=== PATIENT | female | born 1995 | race Caucasian/White ===

== ENCOUNTER → 2017-09-06 13:14 | Outpatient (CLI) | payer SELFPAY ==
--- NOTE | 2017-09-06 13:21 | MRI_ITS ---
STUDY: BILATERAL BREAST MR WITHOUT AND WITH CONTRAST REASON FOR EXAM: Female, 22 years old. Right breast cancer. History of lump for 8 months. Recent biopsy. TECHNIQUE: Multi-sequence multi-echo imaging of both breasts was performed with a dedicated breast coil. T1-weighted and T2-weighted images were performed before the administration of contrast. T1-weighted images were also performed after the administration of 4 mL of Gadavist contrast intravenously without complications. COMPARISON: Prior breast ultrasound dated August 09, 2017 and biopsy images dated August 18, 2017. FINDINGS: RIGHT BREAST: In the upper inner aspect of the right breast there is a lobulated mass measuring approximately 1.7 cm x 2.4 cm x 2.4 cm. This mass corresponds to the ultrasound findings of August 09, 2017. There is low signal intensity within the central portion of the largest mass likely representing necrosis. There are 2 satellite lesions, one medial and adjacent to the largest mass measuring 1 cm x 1.1 cm. There is another mass lateral to and above the largest mass measuring 1.3 cm x 7 mm. In addition to the satellite masses there are 2 separate masses located in the upper outer quadrant approximately 2 cm lateral to the largest mass, one of which went measures 5 mm in widest diameter and the other measuring 6 mm in widest diameter. These masses are suspicious for separate foci of tumor. LEFT BREAST: The breast tissue is scattered fibroglandular densities with minimal background enhancement. There are no abnormal enhancing masses or areas of non-mass enhancement in the left breast. There are no enlarged or abnormal lymph nodes. There is no abnormality in the visualized regions of the chest or liver. MRI/Breast w/o and/or W Cont Bilat IMPRESSION: Multiple masses in the right breast most likely representing multicentric disease, the largest of which is located in the upper inner quadrant and measures 1.7 cm x 2.4 cm x 2.4 cm with a low signal intensity central focus likely representing necrosis. The left breast is unremarkable. CATEGORY: BIRADS Category 6: Known Biopsy-Proven Malignancy - Appropriate Action Should Be Taken. A letter regarding these results will be sent to the patient by the facility within 30 days. Electronically Signed: Isauro Urbano MD at 12:15 EDT , Service support ,
== END ==
PROVIDERS: Family Provider Family Medicine; PCP Family Medicine
DX: C50.919 Malignant neoplasm of unspecified site of unspecified female breast (principal)
CPT/HCPCS: 77059; A9585; A4216; C8908

== ENCOUNTER 2017-09-20 09:17 | Day surgery (SDC) | payer SELFPAY, OTHER ==
[2017-09-20] VITALS (8 sets, daily range): BP systolic 92–123; BP diastolic 59–83; PULSE 50–82; RESP 15–16; TEMP 36.4–37.2; O2SAT 100; BMI 15.4
--- NOTE | 2017-09-20 | BREAST_PTH ---
PATIENT: MERLE BERRIOS LOC: [facility] [place] U#:[id number] AGE/SX: 22/F ROOM: RE09/20/[address]: Dr. Bridget Gibbons MD : 1995 BED: DIS: 09/21/2017 SPEC #: [id number] RECD: 09/20/17 14:09 STATUS: JULITA ANA MARIA #: [id number] J CARLOS: 09/20/17 00:[address]: Bridget Gibbons DEPT: SURGICAL PATHOLOGY RECD BY: Danielle Loyola ENTERED: 09/20/17 15:20 SP TYPE: BREAST OTHR DR: Eloisa Kidd DO Tissues: A - Right breast, NOS B - Lymph node, NOS C - Lymph node, NOS Procedures: Frozen Section (charge) Frozen Section Add'l ([facility]) Surgery Specimen Level V Surgery Specimen Level Frozen (no charge) HEADER OPERATION: Mastectomy, modified radical, axillary lymphadenopathy, Neoprobe PRE-OP DIAGNOSIS: Malignant neoplasm upper inner quadrant, right breast; need for IV access TISSUE SUBMITTED: A ? Right breast sent at 1405 to check margins, long suture zhang tail of Goff, short suture zhang lymph node, B ? Lymph node tissue, right breast ? sent at 1415 for FS, C ? Lymph node right breast sent at 1438 for FS ISCHEMIC TIME: 28 minutes FIXATION TIME: 29 hours FROZEN SECTION DIAGNOSIS A. Right breast: One lymph node (with suture), negative for metastatic carcinoma. B. Lymph node tissue, right: One lymph node, negative for metastatic carcinoma. C. Lymph node tissue, right: Two out of two lymph nodes, negative for metastatic carcinoma. SJ:michela 09/20/17 MICROSCOPIC DIAGNOSIS A. Right breast with sentinel lymph node, mastectomy and sentinel lymph node biopsy: Invasive ductal carcinoma. Ductal carcinoma in situ. One lymph node positive for isolated tumor cells. See cancer summary below. B. [place] lymph node tissue, right: One lymph node positive for isolated tumor cells. C. [place] lymph node tissue, right: Two out of two lymph nodes, negative for metastatic carcinoma. INVASIVE BREAST CANCER SUMMARY: Specimen ? total breast (including nipple and skin). Procedure ? total mastectomy (including nipple and skin). Lymph node sampling ? sentinel lymph nodes Specimen integrity ? single intact specimen Specimen laterality - right Tumor site ? upper inner quadrant Tumor size: Size of largest invasive carcinoma 4 x 2 x 1.5 cm Tumor focality ? two foci of invasive carcinoma Size of individual foci ? 4 x 2 x 1.5 cm and 1 x 1 x 0.7 cm Macroscopic and Microscopic extent of tumor: Skin ? invasive carcinoma does not invade into the dermis or epidermis. Nipple ? ductal carcinoma in situ does not involve the nipple epidermis. Skeletal muscle ? no skeletal muscle present. Ductal carcinoma in situ (DCIS) - ductal carcinoma in situ is present. Extensive intraductal component (EIC) ? see comment Estimated size (extent) of DCIS ? see comment Number of blocks with DCIS - 6 Number of blocks examined - 12 Architectural patterns ? comedo, cribriform and solid Nuclear grade ? grade 3 (high) Necrosis ? present, central (expansive ?comedo? necrosis) Lobular carcinoma in situ (LCIS) ? not identified Histologic type of invasive carcinoma ? invasive ductal carcinoma Histologic Grade ([place] grade): Glandular/tubular differentiation - score 3 Nuclear pleomorphism - score 3 Mitotic count ? score 3 Overall grade - 3 (score of 9) Margins: Margins uninvolved by invasive carcinoma. Ductal carcinoma in situ and invasive ductal carcinoma are <0.1 cm away from the posterior margin. Invasive ductal carcinoma (larger tumor) <0.1 cm away from the closest anterior margin. Lymph-Vascular invasion ? not identified. Dermal lymph-vascular invasion ? not identified Lymph nodes: Number of sentinel lymph nodes examined ? 4 Total number of lymph nodes examined (sentinel and nonsentinel) - 4 Number of lymph nodes with macrometastases and micrometastases - 0 Number of lymph nodes with isolated tumor cells - 2 Extranodal extension ? not seen Method of evaluation of sentinel lymph nodes - H & E, multiple levels and IHC. Distance metastasis ? not applicable Additional pathologic findings ? uninvolved breast tissue with extensive dense fibrosis. - Intraductal hyperplasia with focal atypia. Ancillary studies ? ([id number]) ER - positive (5%, weak) RI - positive (4%, weak) Her2 umair ? negative (0) Her2 by dual FERNY ? not performed. Microcalcifications ? present in ductal carcinoma in situ Clinical history - Please make reference to previous specimen from [facility] ([id number]) right breast, biopsy, 1 o?clock with diagnosis of invasive moderately differentiated ductal carcinoma. PATHOLOGIC STAGE: pT2(m) pN0(i+)sn Mx The above summary is in compliance with [employer] [place] [employer] (CAP) Cancer Protocols Checklist and [place] Joint Committee on Cancer (AJCC), Staging Manual, 8th Ed. SJ:michela 09/23/17 COMMENT A-C. Immunohistochemistry ([id number]) supports the above diagnosis. Two lymph node are positive for isolated tumor cells by immunohistochemical stains for cytokeratins ([id number]) and two lymph node are negative for metastatic carcinoma on multiple H & E levels and immunohistochemical stains for cytokeratins ([id number]). A. Immunohistochemistry ([id number]) is negative for lymph-vascular invasion. Ductal carcinoma in situ comprises about 60% of the smaller tumor volume and 10% of the larger tumor volume. The ductal carcinoma in situ is also noted away from the tumor masses. Extensive intraductal component is noted in relation to smaller tumor. Larger tumor also shows focal area of necrosis. Case has been reviewed in consultation with Dr. Scanlon who concurs with the above diagnosis. IDC:AM MICROSCOPIC DESCRIPTION Slides are reviewed. GROSS DESCRIPTION A - Received fresh for frozen section diagnosis and intraoperative consultation labeled with the patient's name is a specimen designated right breast. The specimen consists of a mastectomy specimen weighing 127 gm and measuring 12 x 10.5 x 3 cm. A piece of skin is noted measuring 6.5 x 1.8 cm. The nipple measures 0.8 cm in greatest dimension. A lymph node is identified by a suture measuring 0.5 cm in greatest dimension. The specimen is oriented by a long suture ? tail of Goff, short suture ? lymph node. The specimen is inked as follows: anterior ? yellow, posterior ? black, superior ? blue, inferior ? green, medial ? red and lateral ? orange. Two tumor masses are identified measuring 4 x 2 x 1.5 cm and 1 x 1 x 0.7 cm. The largest tumor mass is very close to anterior margin. Both tumor masses are 0.1 cm away from the posterior margin. This information is conveyed to the surgeon intraoperatively. Sections of the rest of the specimen reveal ng-yellow adipose cut surfaces mixed with ng-white fibrous area. The lymph node is submitted for frozen section diagnosis. More sections will be submitted after overnight fixation. / SJ: 09/20/17 Air Traffic Controller sections are submitted as follows: 1 ? frozen section, one lymph node, identified by suture, 2 ? nipple, entirely submitted, 3 ? perpendicular medial and lateral margin, 4 - perpendicular superior and inferior margin, 5 & 6 ? smaller tumor with closest anterior and posterior margin, entirely submitted, 710 ? larger tumor with closest anterior and posterior margin, 11-13 ? business representative sections from the other areas. / SJ: 09/21/17 B - Received fresh for frozen section diagnosis labeled with the patient's name is a specimen designated lymph node tissue, right breast. The specimen consists of three pieces of adipose tissue measuring in aggregate 2 x 1 x 0.5 cm. One lymph node is identified measuring 2 cm in greatest dimension. The entire specimen is submitted for frozen section diagnosis in one cassette. / : 09/20/17 C - Received fresh for frozen section diagnosis labeled with the patient's name is a specimen designated lymph node tissue, right breast. The specimen consists of a piece of adipose tissue containing two nodules consistent with lymph node measuring 0.5 and 2.5 cm in greatest dimension. The entire specimen is submitted in three cassettes as follows: 1 ? frozen section, one bisected lymph node, 2 ? frozen section, one lymph node, 3 ? rest of the specimen. / SJ: 09/20/17 TC:0 CPT: 33682, 42543 x2, 72444 x3, 75971, 22632
--- NOTE | 2017-09-20 | IMM_PTH ---
PATIENT: MERLE BERRIOS LOC: [facility] [place] U#:[id number] AGE/SX: 22/F ROOM: RE09/20/[address]: Dr. Bridget Gibbons MD : 1995 BED: DIS: 09/21/2017 SPEC #: [id number] RECD: 09/22/17 13:20 STATUS: JULITA RESamantha #: [id number] J CARLOS: 09/20/17 00:[address]: Bridget Gibbons DEPT: IMMUNOHISTOCHEMISTRY RECD BY: Danielle Loyola ENTERED: 09/22/17 13:22 SP TYPE: IMMUNO OTHR DR: Eloisa Kidd DO Tissues: A - Right breast, NOS B - Axillary lymph node, NOS C - Axillary lymph node, NOS Procedures: CALPONIN-1 (add) CD31 (add) CK7 (add) ER (add) HER2 JAYE (add) NJ (add) FACTOR VIII (add) Pankeratin (initial) Pankeratin (add) P40 (add) PHYSICIAN & [place] [phone] SPECIMEN INFORMATION: Tissue Source: A ? Right breast with sentinel lymph node, B ? Lymph node tissue, right breast, C ? Lymph node tissue, right breast Clinical Info: Malignant neoplasm upper inner quadrant right breast Specimen Number: [id number] A1, A7, A8, B1, C1, C2 CPT code: 42663 x3, 38640 x9, 99591 x3 METHODOLOGY: Deparaffinized sections of prefer/formalin-fixed tissue or PAP/DQ stained slides are incubated with monoclonal/polyclonal antibodies/oligonucleotide probes. Localization is made via biotin free immunoperoxidase method. Appropriate controls are performed and reacted as expected. Results on target cell population are indicated in the following table: RESULTS: ANTIBODY / CLONE RESULT Block A1 AE1-3 (AE1/AE3/PCK26) positive (isolated tumor cells) CK7 (OV-TL12/30) positive (isolated tumor cells) Block A7 MORPHOMETRIC ANALYSIS ER (clone 6F11) 5%, weak NJ (clone 16/1E2) 4%, weak Her-2Neu (clone CB11) 0 The prognostic test for HER2 is performed on formalin-fixed paraffin embedded tissue. A 3+ (positive) staining pattern is defined as intense, homogeneous, complete, circumferential membranous staining in >10% of contiguous tumor cells. A similar weak (2+) staining pattern is interpreted as equivocal. FERNY follow-up testing is recommended for all equivocal cases. Positivity/negativity for ER/NJ is reported if > or < 1% of the tumor cells are immuno- reactive, respectively. The ASCO/CAP criteria is used for scoring. Reference: Journal of Clinical Oncology, 2013; 31:3444-4209 & 2010; 16:8587-1678. Duration of fixation: 29 Hrs; Sample Adequate: Yes. These assays have not been validated on decalcified tissues. Results should be interpreted with caution given the likelihood of false negativity on decalcified specimens. Block A8 CD31 (ELISABETH/70A) negative Factor VIII (R Ag) negative P40 (BC28) positive Calponin-1 (PS281L) positive Block B1 AE1-3 (AE1/AE3/PCK26) positive (isolated tumor cells) CK7 (OV-TL12/30) positive (isolated tumor cells) Block C1 AE1-3 (AE1/AE3/PCK26) negative CK7 (OV-TL12/30) negative Block C2 AE1-3 (AE1/AE3/PCK26) negative CK7 (OV-TL12/30) negative These tests were developed and their performance characteristics determined by [facility]. They may not have been cleared or approved by the U.S. Food and Drug Administration. The FDA has determined that such clearance or approval is not necessary. INTERPRETATION: A. Right breast with sentinel lymph node, mastectomy and sentinel lymph node biopsy: One lymph node positive for isolated tumor cells. Invasive ductal carcinoma Ductal carcinoma in situ. Negative for lymph-vascular invasion. Positive for estrogen receptors (favorable prognostic indicator). Positive for progesterone receptors (favorable prognostic indicator). Negative for overexpression of JSE9avl. B. [place] lymph node tissue, right: One lymph node positive for isolated tumor cells. C. [place] lymph node tissue, right: Two out of two lymph nodes, negative for metastatic carcinoma. SJ:michela 09/23/17
[2017-09-20 09:40] LABS: Internal QC Validated? YES +Cl - CLEAR BKGD; Pregnancy, Urine Negative Negative
--- NOTE | 2017-09-20 10:00 | NM_ITS ---
PROCEDURE: NUCLEAR MEDICINE Injection [place] Node - RIGHT breast(s). REASON FOR EXAM: Female, 22 years old. Right breast cancer. TECHNIQUE: [place] node localization using radionuclide methods of the RIGHT breast(s) was performed following subcutaneous administration of 1.1 mCi of of sulfur colloid Tc-99m. FINDINGS: 1.1 mCi of technetium labeled sulfur colloid was given subcutaneously in the upper outer quadrant of the right breast in 4 equal aliquots. NM/Lymph Node Injection Only IMPRESSION: Subcutaneous injection of 1.1 mCi of Tc labeled sulfur colloid in 4 equal aliquots. Electronically Signed: Eliezer Laird MD at 10:35 EDT Tel [phone], Service support ,
[2017-09-20] MEDS: Bupivacaine 0.25% 30 ML Vial (12:39)
[2017-09-20] MEDS: Methylene Blue 1% 100 MG/10 ML VIAL (12:39)
[2017-09-20] MEDS: 0.9% Saline Lock 10 ML Syringe IV (12:39)
--- NOTE | 2017-09-20 12:43 | NURSING ---
PT UPDATED ABOUT SURGERY TIME.
[2017-09-20] MEDS: Cefazolin 2 GM in 0.9% Normal Saline 100 ML IV (12:47)
--- NOTE | 2017-09-20 15:59 | PCM.IMDPSTOP ---
Immediate Post-Op Note Date of Procedure: 09/20/17 Primary Surgeon/Physician: Bridget Gibbons client services administrator: Nadeem Gallagher Pre-Operative Diagnosis: right breast cancer Post-Operative Diagnosis: right breast cancer - lymph nodes - sentinel (4) negative Surgery/Procedure Performed:: right breast mastectomy, right axillary sentinel lymph node biopsy, placement of permanent indwelling tunnelled catheter in left subclavian vein with subcutaneous port Description of Surgical Findings:: right breast masses x 2 in the breast, right axillary lymph nodes (4) negative for metatatic disease Estimated Blood Loss: 40 ml Specimen's removed: right breast tissue, right axillary lymph duyen tissue Type of Anesthesia:: General ASA Class: ASA2 Mod Systematic Disease - Admit VTE Documentation VTE Present on Admission: Yes VTE Mechan Device Prophylaxis: SCD's
--- NOTE | 2017-09-20 16:02 | OP.PCM_ITS ---
Report of Operation Date of Procedure: 09/20/17 Pre-Operative Diagnosis: right breast cancer Post-Operative Diagnosis: right breast cancer - lymph nodes - sentinel (4) negative Surgery/Procedure Performed:: right breast mastectomy, right axillary sentinel lymph node biopsy, placement of permanent indwelling tunnelled catheter in left subclavian vein with subcutaneous port Description of Surgical Findings:: right breast masses x 2 in the breast, right axillary lymph nodes (4) negative for metatatic disease bicycle designer: Nadeem Gallagher Type of Anesthesia:: General Anesthesiologist: Sarah Barboza Specimen's removed: right breast tissue, right axillary lymph duyen tissue Estimated Blood Loss (mL): 40 ml Fluids Replaced: 1500 ml RL Description of Procedure: After informed consent was given the patient was brought to the OR and placed in the supine position on the operating room table. Appropriate time out protocol was followed. She was then placed under general anesthesia. 3 cc of 50:50 diluted methylene blue dye was then injected into the periareolar area and around the biopsy cavity with a 25 g needle. Gentle massage was then done for a few minutes. The patient's right chest and neck area was then prepped with a sterile surgical skin preparation and appropriate sterile surgical drapes were placed. An elliptical skin incision was made to include the periareolar tissues after ascertaining all landmarks and boundaries of the breast tissue. The skin incision was made with a 10 blade scalpel and carried through to the subcutaneous tissues using electrocautery. Any hemorrhage was controlled with electrocautery. The medial and superior skin flap was created by the subcutaneous fat from the breast tissue using electrocautery. This was carefully done to ensure adequate blood flow to the skin flap. Any bleeding vessels were controlled with electrocautery. Larger vessels were ligated with vicryl suture. Dissection then continued to the level of the right lateral sternal border. The superior level of dissection was carried down to the clavipectoral fascia. The inferior skin flap was developed in the same fashion and the breast tissue was to its inferior border from the subcutaneous fat. The entire breast tissue and the pectoralis fascia were then from the pectoralis muscles starting medially and continuing laterally. The dissection included the interpectoral duyen tissue. Once dissection was achieved to the lateral aspect of the breast, then the inferior portion of the lateral tissue was transected leaving the breast tissue connected only by the superior lateral tissue (tail of Goff) of the breast. The Neoprobe was brought into the operative field. 10 second count over the tumor was in the 7900s. 10 second count in a neutral location was 3. Blunt dissection was then conducted into the axillary fossa to palpate out any axillary lymph nodes. Blue lymphatic channels were also followed to its lymphatic drainage area. An area of lymphatic tissue with palpable blue lymph nodes was obtained. It was from the surrounding tissues using the Harmonic scalpel. 10 second count of this tissue was in the 2200s. The tissue was forwarded to pathology. Four lymph nodes were noted and all were negative for breast cancer. The entire breast tissue was transected from the chest wall. A suture marked the lateral aspect of the tail of Goff. The breast was then forwarded to pathology for analysis. A 15 Fr round drain was then placed in the axilla and another was placed along the mastectomy bed, and both were brought out via separate skin incisions. They were sutured to the skin using nylon suture. The superior and inferior skin flaps were then approximated together using interrupted vicryl suture along the dermis of the skin edges. The skin incision was then reapproximated with 4-0 monocryl in a running subcuticular fashion. Cavilon and steristrips were then placed to reinforce the skin closure and proper sterile dressings were applied. The next procedure done was the placement of the portacath. Reprepping and redraping was done. The patient?s upper chest and neck were then prepped with a surgical skin preparation and sterile surgical drapes were placed. After proper landmarks were ascertained, the skin at the upper left chest area was then infiltrated with local anesthetic. A needle trocar was then inserted into the left subclavian vein and there was good aspiration of venous blood. A wire was then threaded into the needle trocar and this was visualized under fluoroscopy to ensure that the wire was in the left subclavian vein. Once this was done, then the needle trocar was removed. A small skin tony was made with an 11 blade knife at the wire entrance site. The dilator with the introducer sheath attached was then placed over the wire into the left subclavian vein via the Seldinger technique and this was visualized under fluoroscopy. The dilator and sheath were in proper position as visualized by fluoroscopy. The wire and dilator were then removed. The catheter was then threaded into the introducer sheath and was positioned with its tip at the junction of the superior vena cava and the right atrium as visualized under fluoroscopy. The catheter was flushed with a heparin saline mixture prior to placement. A subcutaneous pocket was then created caudad to the catheter insertion site. A transverse skin incision was made after the skin and subcutaneous tissues were infiltrated with local anesthetic. Blunt dissection was then used to create a space large enough for placement of the subcutaneous port. Hemostasis was carefully controlled with electrocautery. The port was sutured to the subcutaneous fascia using vicryl suture at three sites. The catheter was then tunneled into the subcutaneous pocket. The excess catheter was transected. The catheter was then attached to the subcutaneous port using store consultant?s guidelines. The port was then placed in the subcutaneous pocket and the sutures were ligated. The subdermal incisional sites were reapproximated with interrupted vicryl suture. The skin was reapproximated with monocryl suture in a subcuticular fashion. Cavilon and steristrips were used for reinforcement of the skin closure and a sterile opsite dressing was applied. An access needle was then inserted into the port. Aspiration revealed good influx of blood and the port and then the port was then flushed with heparinized saline. The patient tolerated the procedure well. She was brought to the Recovery Room in stable condition. - Complications none noted - Admit VTE Documentation VTE Present on Admission: Yes VTE Mechan Device Prophylaxis: SCD's
--- NOTE | 2017-09-20 16:52 | RAD_ITS ---
STUDY: X-RAY CHEST REASON FOR EXAM: Female, 22 years old. Port placement. Chest wall surgery. TECHNIQUE: Single AP portable view of the chest. COMPARISON: None. FINDINGS: There is a left Mediport catheter that terminates in the lower SVC with no pneumothorax. Normal lung volumes. No infiltrates or effusions. There are 2 right-sided chest wall surgical drains are seen. Heart size normal. Bones and soft tissues show no gross acute abnormalities. IMPRESSION: Right PICC line terminates in the lower SVC with no pneumothorax. Electronically Signed: Didier Lucero MD at 17:08 EDT , Service support , RAD/Chest 1 View (Portable)
[2017-09-20] MEDS: Morphine 4 MG/ML Syringe IV ×2 (18:08→20:39)
[2017-09-20] MEDS: 0.9% NaCl Peripheral Flush Adult/Peds IV (20:39)
[2017-09-20] MEDS: Lactated Ringers 1,000 ML 75 ML IV (20:45)
[2017-09-20] MEDS: HYDROcodone Bitartrate/Apap 5/325 Tablet PO (23:23)
--- NOTE | 2017-09-20 23:28 | NURSING ---
Due to pt's anorexia she has had some difficulty consuming clears. This information was provided to me by Carmela STARKEY as well as pt's . She was given jello prior to administering 1 [place] and was able to consume half of it (per ). Advised pt and spouse that if she tolerated 1 tablet ok she would be able to have a second tablet. acknowledged understanding.
[2017-09-21 00:30] VITALS: BP 124/67; PULSE 58; RESP 16; TEMP 36.5; O2SAT 98
[2017-09-21] MEDS: HYDROcodone Bitartrate/Apap 5/325 Tablet PO ×4 (04:25→12:55)
[2017-09-21 04:30] VITALS: BP 121/64; PULSE 52; RESP 16; TEMP 36.9; O2SAT 98
--- NOTE | 2017-09-21 06:57 | PCM.DC.BS ---
Discharge Diet: No Restrictions Discharge Activity: Return to Normal Activity, May not drive while taking narcotic pain medications. Lifting Restrictions: no lifting with right arm greater than 10 pounds Call your doctor if your incision/area has: Continuous Slow Oozing, Foul Smelling Discharge Call your doctor if you observe: Fever of 101 or Higher Additional Dressing/Incision Instructions:: Leave dressings in place. Sponge bathe only. empty MERE bulbs as directed Allergies/Adverse Reactions: Allergies No Known Allergies Allergy (Verified 09/15/17 10:02) Medications to take at Discharge Cholecalciferol (Vitamin D3) [Vitamin D3] 500 unit PO BID 09/15/17 Methimazole [Tapazole] 20 mg PO DAILY 09/15/17 Cephalexin [Keflex] 500 mg PO BID #20 cap 09/20/17 Hydrocodone Bitart/Apap 5-325 [[place] 5MG-325MG] 1 tab PO Q6H PRN PRN 7 Days #20 tab 09/20/17 The following prescriptions were given: Hydrocodone Bitart/Apap 5-325 [[place] 5MG-325MG] 1 tab PO Q6H PRN PRN 7 Days #20 tab PRN Reason: Pain Cephalexin [Keflex] 500 mg PO BID #20 cap Please Follow Up With: Bridget Gibbons MD - call When: to be seen on , please call for time, thank you
[2017-09-21 08:27] VITALS: BP 93/66; PULSE 58; RESP 18; TEMP 36.9; O2SAT 98
[2017-09-21] MEDS: Ketorolac 30 MG/ML Syringe IV (12:46)
[2017-09-21 13:37] VITALS: BP 92/61; PULSE 62; RESP 18; TEMP 36.9; O2SAT 98
== END 2017-09-21 13:30 | disposition home or self-care (01) ==
LOC: SDC 09:39 → MS3 09-21 14:33
PROVIDERS: Anesthesiology; Family Provider Family Medicine; PCP Family Medicine; Visit Provider Surgery
PROC: (CPT 19307; principal; 2017-09-20 12:15)
DX: C50.211 Malignant neoplasm of upper-inner quadrant of right female breast (principal); Z17.1 Estrogen receptor negative status [ER-]; E78.5 Hyperlipidemia, unspecified; E05.00 Thyrotoxicosis with diffuse goiter without thyrotoxic crisis or storm; R63.0 Anorexia; Z68.1 Body mass index [BMI] 19.9 or less, adult
CPT/HCPCS: 19307; 36561; 38792; 71045; 77001; 81025; 84443; 88305; 88307; 88309; 88331; 88332; 88341; 88342; A9541; J7120; A4216; C1788; J2405

== ENCOUNTER → 2017-10-19 10:14 | Outpatient (CLI) | payer OTHER, SELFPAY ==
[2017-10-19 10:58] LABS: Phosphorus 3.8 mg/dL (2.5-4.9)
== END ==
PROVIDERS: Family Provider Family Medicine; PCP Family Medicine; Visit Provider Internal Medicine Hematology & Oncology
DX: C50.811 Malignant neoplasm of overlapping sites of right female breast (principal); Z17.0 Estrogen receptor positive status [ER+]
CPT/HCPCS: 84100

== ENCOUNTER 2017-10-22 21:51 | Emergency (ER) | payer OTHER, SELFPAY ==
[2017-10-22 21:54] VITALS: BP 98/58; PULSE 95; RESP 20; TEMP 36.6; O2SAT 97; BMI 15.5
--- NOTE | 2017-10-22 22:18 | ED.DCSUM_ITS ---
- ER Visit Summary Date of Service: 10/22/17 Chief Complaint: Fever History of Present Illness: The patient is a 22 F with history of breast cancer. Patient underwent her first chemotherapy treatment on the eighth. She was seen in the clinic the following day for nausea and vomiting and again on the for a migraine from the medications. This afternoon she developed a fever to 102.7. She took ibuprofen and Tylenol. Patient denies headache, cough , dysuria. She has had minimal nausea. She denies diarrhea. Physical Examination: Blood pressure is 98/58, temperature 97.8, heart rate 95, respiratory rate 20, pulse ox 97% on room air. Patient sitting upright in bed no acute distress. She is nontoxic appearing. Head neck examination reveals TMs to be clear bilaterally. She has no sinus tenderness to palpation. She has mild posterior pharyngeal drainage. No significant tonsillar enlargement uvula is midline. Neck is supple with no meningismus. Heart is regular rate and rhythm. Lung sounds are clear. Abdomen is soft nontender. Active bowel sounds are noted throughout. Skin examination was no obvious rash or lesions. Test Results: Two-view chest x-ray reveals no acute findings. CBC was a white count of 15.0 with 84% neutrophils. Hemoglobin is 11.7. Chemistry studies and LFTs are normal. Urinalysis is normal. Lactate is normal. Emergency Department Course and Treatment: Patient is given IV fluids. She denies need for pain or nausea meds here. I spoke with Dr. Bermudez, her oncologist. Blood cultures including one through her port and urine culture have been sent. He is okay with her being discharged home to closely monitor her symptoms. Patient is advised to call him or return to the ER if fever spikes again. They are comfortable with this plan. Treatment Plan: [] Disposition: Discharge Impression: 1. Fever, uncertain etiology 2. Recent chemotherapy This note was generated with [employer] software. It may contain incorrect words, spelling, and punctuation that were not noted in review of the chart prior to signing ED Disposition - Plan for ED Patient: Chief Complaint: Fever Referrals: Eloisa Kidd MD [Primary Care Provider] -
[2017-10-22] MEDS: 0.9% Normal Saline 1,000 ML 125 ML IV (23:01)
[2017-10-22 23:02] VITALS: BP 97/66; PULSE 81; RESP 15; O2SAT 98
--- NOTE | 2017-10-22 23:07 | RAD_ITS ---
STUDY: X-RAY CHEST REASON FOR EXAM: Female, 22 years old. Fever TECHNIQUE: 2 views COMPARISON: September 21, 1999 810 FINDINGS: An Zgopzo-w-Istw through the left subclavian vein is seen with the tip in the superior vena cava. The lungs are clear. The heart is normal. Normal visualized thoracic spine. Normal visualized ribs, clavicles, and shoulders. There is no demonstrated abnormality of the visualized soft tissue structures of the upper abdomen. RAD/Chest PA and Lateral IMPRESSION: No acute findings in the lungs Electronically Signed: Abimael Carballo, at 23:36 EDT Tel , Service support ,
[2017-10-22 23:12] LABS: ALB/GLOB Ratio 0.9 RATIO (0.9-2.4); AST(SGOT) 20 U/L (15-37); Alanine Aminotransfer ALT/SGPT 28 U/L (13-56); Albumin, Serum 3.2 g/dL (3.2-5.0); Alkaline Phosphatase 87 U/L (45-117); Anion Gap 8 (5-15); BUN 18 mg/dL (7-18); BUN/Creat Ratio 27.2 RATIO (10-20); Calcium,Total 8.6 mg/dL (8.5-10.1); Chloride 105 mmol/L (98-107); Creatinine, Serum 0.66 mg/dL (0.55-1.02); EST Glomerular Filtration Rate 116 mL/min (>60); Est Glom Filt Rate - Afr Amer 141 mL/min (>60); Estimated Creatinine Clearance 82.79 ml/min; Globulin 3.5 g/dL (2.2-4.2); Glucose 106 mg/dL (74-106); Hematocrit 33.6 % (37-47); Hemoglobin 11.7 g/dl (12.0-15.0); Mean Corp Hgb Conc 34.8 g/gl (32-36); Mean Corpuscular Hgb 31.3 pg (27.0-32.0); Mean Corpuscular Volume 89.8 fL (81-99); Mean Platelet Vol. 9.9 fl (6.2-12.0); Platelet Count 148 K/mm3 (150-450); Potassium 3.6 mmol/L (3.5-5.1); Protein, Total 6.7 g/dL (6.4-8.2); RBC Distribution Width CV 11.8 % (11.6-14.6); RBC Distribution Width SD 37.3 fl (35.1-43.9); Red Blood Count 3.74 M/mm3 (4.2-5.4); Sodium Level 140 mmol/L (136-145)
[2017-10-22 23:14] LABS: Differential Indicated MANUAL DIFF; POSITIVE COUNT YES; POSITIVE DIFFERENTIAL NO; POSITIVE MORPHOLOGY YES
[2017-10-22 23:16] LABS: Lactic Acid 1.1 mmol/L (0.4-2.0)
[2017-10-22 23:59] LABS: Bacteria 0 SEEN /hpf (None Seen); Mucous, Urine 0 SEEN /hpf (<or=2+); Red Blood Cells-Urine 0 SEEN /hpf (0-5); White Blood Cells 0 SEEN /hpf (0-5)
[2017-10-23 00:03] LABS: Color, Urine Yellow (Yellow); Glucose, Dipstick Normal (Normal); Ketone-Dipstick Negative (Negative); Leukocyte Esterase-Dipstick Negative /ul (Negative); Nitrite-Dipstick Negative (Negative); Occult Blood-Urine Negative /ul (Negative); Protein-Dipstick 15 mg/dl (Negative); Specific Gravity, Urine 1.025 (1.002-1.030); Urine Bilirubin Dipstick Negative (Negative); Urine Clarity Sl. Cloudy (Clear); Urine Urobilinogen Normal (Normal)
[2017-10-23 00:08] VITALS: BP 95/67; PULSE 75; RESP 18; O2SAT 98
[2017-10-23 00:08] LABS: Basophil 1 % (0-1); Eosinophil 1 % (0-5); Lymphocyte 9 % (19-41); Monocyte 1 % (0-10); Neutrophil-Band 4 % (0-5); Neutrophil-Segmented 84 % (47-70); Total Cells Counted 100 (MANUAL DIFF)
[2017-10-23 00:09] LABS: Platelet Estimate ADEQUATE (ADEQ); Red Cell Morphology NORM C+C NORMAL (NORM C&C)
[2017-10-23 00:11] LABS: Absolute Lymphocyte Count 1.35 X10^3/ul (0.83-4.51); Absolute Neutrophil Count 13.2 X10^3/uL (2.0-7.7)
[2017-10-23 00:14] LABS: Squamous Epithelial Cells - UA 0-5 SEEN /hpf (5-10)
--- NOTE | 2017-10-23 00:53 | ED.DEP ---
ED Disposition - Plan for ED Patient: Disposition: Home or Assisted Living Chief Complaint: Fever Instructions: ED Fever Unconf Cause Referrals: Brandin Bermudez DO [STAFF PHYSICIAN] - 3-5 Days
[2017-10-23 01:05] VITALS: BP 99/64; PULSE 75; RESP 18; O2SAT 98
[2017-10-26 11:07] LABS: Pathologist Review Reviewed
== END 2017-10-23 01:07 | disposition home or self-care (01) ==
PROVIDERS: Emergency Provider Emergency Medicine; Family Provider Family Medicine; PCP Family Medicine
DX: R50.9 Fever, unspecified (principal); C50.911 Malignant neoplasm of unspecified site of right female breast; Z90.11 Acquired absence of right breast and nipple
CPT/HCPCS: 36415; 36591; 71046; 80053; 81001; 83605; 85025; 87040; 87086; 87088; 96360; 96361; 99283; J7030; A4216

== ENCOUNTER → 2018-06-27 07:28 | Outpatient (CLI) | payer SELFPAY ==
[2018-03-10 14:02] VITALS: BMI 15.1
[2018-04-27 11:17] VITALS: BMI 15.0
--- NOTE | 2018-06-27 07:30 | NM_ITS ---
CLINICAL: 23-year-old female with reported history of clinical thyrotoxicosis. I-123 THYROID UPTAKE and SCAN COMPARISON: None available FINDINGS: The patient was administered a 356 uCi I-123 capsule by mouth. The 4-hour I-123 radioactive iodine thyroidal uptake was calculated to be 22.6 % (normal 5 to 25 %). The 24-hour I-123 radioactive iodine thyroidal uptake was calculated to be 69.0 % (normal 5 to 40 %). The I-123 thyroid scan demonstrates homogeneous radiopharmaceutical concentration throughout the visualized right lobe and thyroid isthmus. There is relative nonvisualization of the left lobe thyroid colloid. NM/Thyroid Uptake Single or Mult IMPRESSION: 1. UPPER LIMITS OF NORMAL 4- and ABNORMAL ELEVATED 24-hour I-123 radioactive iodine thyroidal uptakes. 2. The I-123 thyroid scan in conjunction with a calculated iodine uptake values is consistent with the presence of an apparent right lobe toxic adenoma with near complete suppression of the left lobe of thyroid colloid, in the absence of previous thyroid surgical intervention. Electronically Signed: Joshua Mari DO at 22:58 EST Tel , Service support ,
== END ==
PROVIDERS: Family Provider Family Medicine; PCP Family Medicine; Referring Provider Internal Medicine Endocrinology, Diabetes & Metabolism; Visit Provider Internal Medicine Endocrinology, Diabetes & Metabolism
DX: E05.00 Thyrotoxicosis with diffuse goiter without thyrotoxic crisis or storm (principal)
CPT/HCPCS: 78012; A9516

== ENCOUNTER → 2018-06-28 07:54 | Outpatient (CLI) | payer OTHER, SELFPAY ==
[2018-03-10 14:02] VITALS: BMI 15.1
[2018-04-27 11:17] VITALS: BMI 15.0
[2018-06-28 08:46] LABS: Hemoglobin 13.2 g/dl (12.0-15.0); Mean Corpuscular Hgb 29.9 pg (27.0-32.0); Mean Corpuscular Volume 90.5 fL (81-99); Platelet Count 225 K/mm3 (150-450); RBC Distribution Width CV 13.5 % (11.6-14.6); RBC Distribution Width SD 44.6 fl (35.1-43.9); Red Blood Count 4.42 M/mm3 (4.2-5.4); Scan Indicated on CBC? Y/N NO; White Blood Count 2.3 K/mm3 (4.4-11.0)
[2018-06-28 09:20] LABS: Vitamin B12 671 pg/mL (211-911); Vitamin D,25 Hydroxy 107.7 ng/mL (29.95-100.01)
[2018-06-28 09:48] LABS: ALB/GLOB Ratio 1.1 RATIO (0.9-2.4); AST(SGOT) 21 U/L (15-37); Alanine Aminotransfer ALT/SGPT 27 U/L (13-56); Albumin, Serum 3.9 g/dL (3.2-5.0); Alkaline Phosphatase 84 U/L (45-117); Anion Gap 7 (5-15); BUN 11 mg/dL (7-18); BUN/Creat Ratio 17.4 RATIO (10-20); Calcium,Total 9.2 mg/dL (8.5-10.1); Chloride 106 mmol/L (98-107); Creatinine, Serum 0.63 mg/dL (0.55-1.02); EST Glomerular Filtration Rate 122 mL/min (>60); Est Glom Filt Rate - Afr Amer 148 mL/min (>60); Globulin 3.6 g/dL (2.2-4.2); Glucose 81 mg/dL (74-106); Magnesium 1.8 mg/dL (1.6-2.6); Phosphorus 3.5 mg/dL (2.5-4.9); Potassium 3.6 mmol/L (3.5-5.1); Protein, Total 7.5 g/dL (6.4-8.2); Sodium Level 141 mmol/L (136-145)
== END ==
PROVIDERS: Family Provider Family Medicine; PCP Family Medicine; Referring Provider Family Medicine; Visit Provider Family Medicine
DX: F50.01 Anorexia nervosa, restricting type (principal)
CPT/HCPCS: 36415; 80053; 82306; 82607; 82746; 83735; 84100; 85027

== ENCOUNTER → 2018-07-14 13:49 | Outpatient (CLI) | payer OTHER, SELFPAY ==
[2018-03-10 14:02] VITALS: BMI 15.1
[2018-04-27 11:17] VITALS: BMI 15.0
[2018-07-14 15:02] LABS: Absolute Lymphocyte Count 0.89 X10^3/ul (0.83-4.51); Absolute Neutrophil Count 2.8 X10^3/uL (2.0-7.7); Basophil# 0.02 X10^3/uL; Basophil% 0.5 % (0-1); Eosinophil# 0.09 X10^3/uL; Eosinophils% 2.2 % (0-5); Hematocrit 41.3 % (37-47); Hemoglobin 13.7 g/dl (12.0-15.0); Lymphocyte # 0.89 X10^3/ul (4.0); Lymphocyte % 21.4 % (19-41); Mean Corp Hgb Conc 33.2 g/gl (32-36); Mean Corpuscular Hgb 30.2 pg (27.0-32.0); Mean Platelet Vol. 9.5 fl (6.2-12.0); Monocyte# 0.36 X10^3/uL; Monocyte% 8.7 % (0-10); Neutrophil # 2.79 X10^3/uL (2.7-7.7); Neutrophil % 67.2 % (47-70); POSITIVE COUNT NO; POSITIVE DIFFERENTIAL NO; POSITIVE MORPHOLOGY NO; Platelet Count 281 K/mm3 (150-450); RBC Distribution Width CV 13.4 % (11.6-14.6); RBC Distribution Width SD 44.5 fl (35.1-43.9); Red Blood Count 4.54 M/mm3 (4.2-5.4); White Blood Count 4.2 K/mm3 (4.4-11.0)
[2018-07-14 15:36] LABS: AST(SGOT) 32 U/L (15-37); Alanine Aminotransfer ALT/SGPT 44 U/L (13-56); Albumin, Serum 3.9 g/dL (3.2-5.0); Alkaline Phosphatase 104 U/L (45-117); Anion Gap 9 (5-15); BUN 9 mg/dL (7-18); BUN/Creat Ratio 15.2 RATIO (10-20); Calcium,Total 9.7 mg/dL (8.5-10.1); Chloride 107 mmol/L (98-107); Creatinine, Serum 0.59 mg/dL (0.55-1.02); EST Glomerular Filtration Rate 132 mL/min (>60); Est Glom Filt Rate - Afr Amer 159 mL/min (>60); Free T3 6.1 pg/mL (2.18-3.98); Globulin 3.8 g/dL (2.2-4.2); Glucose 83 mg/dL (74-106); Potassium 3.9 mmol/L (3.5-5.1); Protein, Total 7.7 g/dL (6.4-8.2); Sodium Level 144 mmol/L (136-145); T4 Free Direct 1.87 ng/dL (0.76-1.46)
== END ==
PROVIDERS: Family Provider Family Medicine; PCP Family Medicine; Referring Provider Internal Medicine Endocrinology, Diabetes & Metabolism; Visit Provider Internal Medicine Endocrinology, Diabetes & Metabolism
DX: E05.00 Thyrotoxicosis with diffuse goiter without thyrotoxic crisis or storm (principal)
CPT/HCPCS: 36415; 80053; 84439; 84481; 85025

== ENCOUNTER 2018-08-27 08:36 | Emergency (ER) | payer OTHER, SELFPAY ==
[2018-03-10 14:02] VITALS: BMI 15.1
[2018-04-27 11:17] VITALS: BMI 15.0
[2018-08-27 08:37] VITALS: BP 100/71; PULSE 74; RESP 12; TEMP 36.4; O2SAT 99; BMI 16.6
[2018-08-27 08:51] VITALS: RESP 16; TEMP 36.4; O2SAT 99
--- NOTE | 2018-08-27 08:56 | ED.DCSUM_ITS ---
- ER Visit Summary Date of Service: 08/27/18 Chief Complaint: Numbness and tingling History of Present Illness: The patient is a 23 F with history of thyroidectomy 5 days ago presents with numbness and tingling the fingers and toes and some intermittent cramping. This started last night. She has no nausea vomiting or abdominal pain. No fever or chills. She does not report her heart racing. Physical Examination: Not appear in acute distress. Moist mucous membranes, no obvious facial deformity Neck exam shows a clean dry and intact anterior incision, horizontal. No C-spine tenderness Regular rate and rhythm without any obvious murmurs Clear lungs bilaterally speaking in full sentences without any obvious respiratory distress Abdomen soft and nontender no guarding or rebound Moves all extremities without any difficulty or pain. No calf pain or edema. Skin does not show any obvious rashes or lesions, no trauma. Alert oriented ?3 with no gross focal deficit Emergency Department Course and Treatment: Patient is found to have a calcium of 7. I gave her 2 g of calcium gluconate in the ED and her symptoms have now resolved. She is to continue taking calcium at home, more than likely her one remaining parathyroid gland will normalize her calcium. Patient will be discharged in stable condition. Disposition: [] Discharge stable condition Impression: [Hypocalcemia] This note was generated with [employer] dictation software. It may contain incorrect words, spelling, and punctuation that were not noted in review of the chart prior to signing ED Disposition - Plan for ED Patient: Disposition: Home or Assisted Living Instructions: ED Hypocalcemia Referrals: Lynne Ramos [Primary Care Provider] - 3-5 Days
[2018-08-27 09:21] LABS: Absolute Lymphocyte Count 0.83 X10^3/ul (0.83-4.51); Absolute Neutrophil Count 1.5 X10^3/uL (2.0-7.7); Basophil# 0.04 X10^3/uL; Basophil% 1.5 % (0-1); Eosinophil# 0.12 X10^3/uL; Eosinophils% 4.4 % (0-5); Hematocrit 38.3 % (37-47); Hemoglobin 12.6 g/dl (12.0-15.0); Lymphocyte # 0.83 X10^3/ul (4.0); Lymphocyte % 30.4 % (19-41); Mean Corp Hgb Conc 32.9 g/gl (32-36); Mean Corpuscular Hgb 30.4 pg (27.0-32.0); Mean Corpuscular Volume 92.5 fL (81-99); Mean Platelet Vol. 9.2 fl (6.2-12.0); Monocyte% 7.3 % (0-10); Neutrophil # 1.54 X10^3/uL (2.7-7.7); Neutrophil % 56.4 % (47-70); Platelet Count 245 K/mm3 (150-450); RBC Distribution Width CV 13.9 % (11.6-14.6); RBC Distribution Width SD 46.9 fl (35.1-43.9); Red Blood Count 4.14 M/mm3 (4.2-5.4); White Blood Count 2.7 K/mm3 (4.4-11.0)
[2018-08-27 09:23] LABS: POSITIVE COUNT NO; POSITIVE DIFFERENTIAL NO; POSITIVE MORPHOLOGY NO
[2018-08-27 09:43] LABS: AST(SGOT) 46 U/L (15-37); Alanine Aminotransfer ALT/SGPT 51 U/L (13-56); Albumin, Serum 3.8 g/dL (3.2-5.0); Alkaline Phosphatase 92 U/L (45-117); Anion Gap 3 (5-15); BUN 16 mg/dL (7-18); BUN/Creat Ratio 18.3 RATIO (10-20); Chloride 102 mmol/L (98-107); Creatinine, Serum 0.87 mg/dL (0.55-1.02); EST Glomerular Filtration Rate 84 mL/min (>60); Est Glom Filt Rate - Afr Amer 102 mL/min (>60); Estimated Creatinine Clearance 66.32 ml/min; Globulin 3.7 g/dL (2.2-4.2); Glucose 74 mg/dL (74-106); Potassium 3.2 mmol/L (3.5-5.1); Protein, Total 7.5 g/dL (6.4-8.2); Sodium Level 139 mmol/L (136-145); Thyroid Stim Hormone (TSH) 1.63 uIU/mL (0.358-3.74)
[2018-08-27 10:53] VITALS: BP 97/58; PULSE 49; RESP 14
--- NOTE | 2018-08-27 10:54 | ED.RN ---
no further sepsis screening requiredper
[2018-08-27 12:23] VITALS: BP 126/68; PULSE 51; RESP 14; TEMP 36.7; O2SAT 100
== END 2018-08-27 12:24 | disposition home or self-care (01) ==
PROVIDERS: Emergency Provider Emergency Medicine; Family Provider Family Medicine; PCP Family Medicine
DX: E83.51 Hypocalcemia (principal)
CPT/HCPCS: 80053; 84443; 85025; 96365; 96366; 99284; J0610

== ENCOUNTER → 2018-09-22 14:17 | Outpatient (CLI) | payer SELFPAY ==
[2018-03-10 14:02] VITALS: BMI 15.1
[2018-08-27 08:37] VITALS: BMI 16.6
--- NOTE | 2018-09-22 14:27 | US_ITS ---
STUDY: ULTRASOUND BREAST - RIGHT REASON FOR EXAM: Female, 23 years old. Right axillary nodule. TECHNIQUE: Axial and longitudinal images of the RIGHT breast were performed with a high resolution ultrasound transducer. COMPARISON: Comparison is made with prior MRI of the breasts dated September 06, 2017. FINDINGS: RIGHT Breast: There is a 1.1 cm x 0.4 cm x 0.3 cm hypoechoic nodule with a central echogenic density suggestive of a small lymph node. US/Breast Limited Unilateral IMPRESSION: Findings suggestive a 1.1 cm x 0.4 cm x 0.3 cm lymph node in the right axillary region. ASSESSMENT CATEGORY: BIRADS Category 2: Benign. A letter regarding these results will be sent to the patient by the facility within 30 days. Electronically Signed: Eliezer Laird, at 11:00 EDT , Service support ,
== END ==
PROVIDERS: Visit Provider Student in an Organized Health Care Education/Training Program
DX: N63.31 Unspecified lump in axillary tail of the right breast (principal)
CPT/HCPCS: 76642

== ENCOUNTER → 2018-12-06 07:30 | Outpatient (CLI) | payer OTHER, SELFPAY ==
[2018-03-10 14:02] VITALS: BMI 15.1
--- NOTE | 2018-12-06 07:38 | BI_ITS ---
MAMMOGRAPHY - UNILATERAL SCREENING: LEFT BREAST WITH TOMOSYNTHESIS AND CAD REASON FOR EXAM: Female, 23 years old. Routine annual screening examination (unilateral). PERTINENT HISTORY: History of right mastectomy. Baseline mammogram today. TECHNIQUE: TECHNIQUE: Digital and tomosynthesis examination. Mediolateral oblique (MLO) and craniocaudad (CC) views of the left breast with tomosynthesis. CAD: CAD was performed on this study. COMPARISON: MRI of both breasts dated September 06, 2017 FINDINGS: Breast Composition: The breasts are heterogeneously dense, which may obscure small masses. There are benign calcifications. There are no dominant masses or suspicious calcifications. No other significant abnormalities are identified. BI/SCREEN MAMM (CAD) W/TOREY UNI L IMPRESSION: Negative screening mammogram. ASSESSMENT CATEGORY: BIRADS Category 2: Benign. A letter regarding these results will be sent to the patient by the facility within 30 days. FOLLOW UP RECOMMENDATION: Yearly follow up mammogram recommended. (A) Approximately 10% of breast cancers are not detected by mammography. A normal mammogram should not delay biopsy of a clinically suspicious abnormality. [id number] Electronically Signed: Isauro Urbano MD at 12:29 EDT , Service support ,
== END ==
PROVIDERS: Family Provider Family Medicine; PCP Family Medicine; Referring Provider Student in an Organized Health Care Education/Training Program; Visit Provider Student in an Organized Health Care Education/Training Program
DX: Z12.31 Encounter for screening mammogram for malignant neoplasm of breast (principal)
CPT/HCPCS: 77061; 77067; G0279

== ENCOUNTER → 2020-01-02 09:04 | Outpatient (CLI) | payer SELFPAY ==
[2018-03-10 14:02] VITALS: BMI 15.1
--- NOTE | 2020-01-02 09:05 | BI_ITS ---
MAMMOGRAPHY - UNILATERAL DIAGNOSTIC: LEFT BREAST REASON FOR EXAM: Female, 24 years old. PERSONAL HX @ AGE 22 - NO FAM HX - RT MASTECTOMY WITH RADIATION AND CHEMO - PT C/O RT BREAST MASTECTOMY SITE PAIN PERTINENT HISTORY: Non-contributory. TECHNIQUE: Digital examination. Mediolateral oblique (MLO) and craniocaudad (CC) views of the breast were obtained, along with 3-D tomosynthesis. CAD: CAD was performed on this study. COMPARISON: 12/06/2018 FINDINGS: Breast Composition: The breasts are extremely dense, which lowers the sensitivity of mammography. There are no dominant masses or suspicious calcifications. Stable calcifications in the lateral left breast No other significant abnormalities are identified. BI/DIAG MAMM W/CAD, UNILAT IMPRESSION: Stable unilateral diagnostic mammogram. ASSESSMENT CATEGORY: BIRADS Category 2: Benign. A letter regarding these results will be sent to the patient by the facility within 30 days. FOLLOW-UP RECOMMENDATION: Yearly follow-up mammogram recommended. (A) Approximately 10% of breast cancers are not detected by mammography. A normal mammogram should not delay biopsy of a clinically suspicious abnormality. Electronically Signed: Bryan Tam MD at 10:06 EDT , Service support ,
--- NOTE | 2020-01-02 10:24 | US_ITS ---
STUDY: SUPERFICIAL ULTRASOUND - RIGHT MASTECTOMY SITE, RIGHT AXILLA REASON FOR EXAM: Female, 24 years old. SCANNED AREA OF PAIN-RT LAT ABD., RT AXILLA, AREA OF RT MASTECTOMY SCAR -- HX OF BREAST CA AND RT MASTECTOMY 2018 TECHNIQUE: A superficial ultrasound was performed with real-time and static marinelli-scale imaging. COMPARISON: None. FINDINGS: Sonographic evaluation of the right axilla and site of right mastectomy scar. No suspicious sonographic findings are noted. Findings show architectural distortion and postsurgical change consistent with mastectomy. No hyperemia, organized fluid collection or shadowing nodule noted. US/Ext Non Vasc Limited/Soft Tiss IMPRESSION: No suspicious sonographic findings Electronically Signed: Bryan Tam MD at 12:24 EDT , Service support ,
== END ==
PROVIDERS: PCP Family Medicine; Referring Provider Student in an Organized Health Care Education/Training Program; Visit Provider Student in an Organized Health Care Education/Training Program
DX: Z12.31 Encounter for screening mammogram for malignant neoplasm of breast (principal); N64.4 Mastodynia; Z90.11 Acquired absence of right breast and nipple; Z85.3 Personal history of malignant neoplasm of breast
CPT/HCPCS: 76882; 77061; 77065; G0279

== ENCOUNTER → 2020-01-03 13:49 | Outpatient (CLI) | payer SELFPAY ==
[2018-03-10 14:02] VITALS: BMI 15.1
--- NOTE | 2020-01-03 13:52 | CT_ITS ---
STUDY: CT CHEST WITH CONTRAST REASON FOR EXAM: Female, 24 years old. RIGHT ARM AND SHOULDER PAIN X 2 WEEKS RADIATION DOSAGE (If Supplied By Facility): CTDIvol = ( ) mGy, DLP = ( ) mGycm TECHNIQUE: Transaxial imaging was performed following intravenous administration of IV 100mL Isovue-300. Individualized dose optimization techniques were used for this CT. COMPARISON: None. FINDINGS: Lung windows show a small right apical pneumothorax with pulmonary contusion in the right upper lobe. No clearly demonstrated rib, sternal, or vertebral body fracture to explain the pneumothorax. The left lung is normal. There is no demonstrated pleural abnormality. Normal heart and pericardium. Normal mediastinum. Normal hilar regions. Normal enhanced pulmonary arteries. Normal aorta arch and descending thoracic aorta. Normal osseous structures. Evidence of previous right mastectomy CT/Chest WITH Contrast IMPRESSION: Small right apical pneumothorax without mediastinal shift. Pulmonary contusion in the right upper lobe No demonstrated rib, vertebral body, or sternal fracture to explain the pneumothorax Evidence of previous right mastectomy Electronically Signed: Bryan Tam MD at 14:33 EDT , Service support ,
[2020-01-03 14:06] LABS: CREATININE FINGERSTICK < 0.6 mg/dL (0.55-1.02)
== END ==
PROVIDERS: PCP Family Medicine; Referring Provider Student in an Organized Health Care Education/Training Program; Visit Provider Student in an Organized Health Care Education/Training Program
DX: R07.89 Other chest pain (principal); C50.919 Malignant neoplasm of unspecified site of unspecified female breast
CPT/HCPCS: 71260; Q9967

== ENCOUNTER → 2020-01-10 15:28 | Outpatient (CLI) | payer OTHER, SELFPAY ==
[2018-03-10 14:02] VITALS: BMI 15.1
--- NOTE | 2020-01-10 15:31 | MRI_ITS ---
STUDY: MRI RIGHT SHOULDER REASON FOR EXAM: Female, 24 years old. RT SHOULDER DIFFICULT ARM ABDUCTION -- hx rt breast cancer 2018 with surgery including 4 lymph nodes removed, pain rt side neck, shoulder , chest x 3 months, limited rom TECHNIQUE: Standardized fat and water weighted pulse sequences were obtained in all 3 orthogonal planes. COMPARISON: None. FINDINGS: There is intratendinous edema consistent with a supraspinatus tendinosis. Normal infraspinatus tendon. Normal subscapularis tendon. Normal teres minor tendon. Visualized muscles of the rotator cuff are unremarkable. Normal glenohumeral articulation. Normal humeral head and visualized proximal humerus. Normal biceps labral complex. Normal intracapsular long biceps tendon. Normal labrum. Normal capsulo- ligamentous complex. Normal rotator interval. Normal acromioclavicular articulation. There is a Type II morphology (curved), with a neutral orientation. There is no subacromial-subdeltoid bursal fluid. Normal visualized coracohumeral and coracoacromial ligaments. MRI/Upper Ext Joint Only(Routine) IMPRESSION: 1. Supraspinatus tendinosis. Electronically Signed: Erika Anderson MD at 17:52 EDT Tel , Service support ,
== END ==
PROVIDERS: PCP Family Medicine; Referring Provider Student in an Organized Health Care Education/Training Program; Visit Provider Student in an Organized Health Care Education/Training Program
DX: M25.619 Stiffness of unspecified shoulder, not elsewhere classified (principal)
CPT/HCPCS: 73221

== ENCOUNTER → 2020-02-05 14:03 | Outpatient (CLI) | payer SELFPAY ==
[2018-03-10 14:02] VITALS: BMI 15.1
--- NOTE | 2020-02-05 14:04 | RAD_ITS ---
STUDY: X-RAY CHEST REASON FOR EXAM: Female, 24 years old. Follow-up small apical right pneumothorax. TECHNIQUE: PA and lateral views of the chest. COMPARISON: CT of the chest, 01/03/2020. Chest, 10/22/2017. FINDINGS: The lungs are clear and expanded. No infiltrate or mass. There is no pneumothorax. There is no demonstrated pleural abnormality. Normal size heart. Normal mediastinum and virgie. Normal visualized pulmonary arteries. Normal visualized aortic arch and descending thoracic aorta. Normal visualized thoracic spine. Normal visualized ribs, clavicles, and shoulders. There is no demonstrated abnormality of the visualized soft tissue structures of the upper abdomen. RAD/Chest PA and Lateral IMPRESSION: No acute cardiopulmonary disease. Electronically Signed: Marty Franco DO at 23:56 EDT Tel [phone], Service support ,
== END ==
PROVIDERS: PCP Family Medicine; Referring Provider Student in an Organized Health Care Education/Training Program; Visit Provider Student in an Organized Health Care Education/Training Program
DX: J93.9 Pneumothorax, unspecified (principal)
CPT/HCPCS: 71046

== ENCOUNTER → 2020-11-12 09:05 | Outpatient (CLI) | payer OTHER, SELFPAY ==
[2018-03-10 14:02] VITALS: BMI 15.1
[2020-11-04 11:12] VITALS: BMI 18.0
--- NOTE | 2020-11-12 09:07 | NM_ITS ---
CLINICAL: 25-year-old female with reported history of carcinoma of the breast. WHOLE BODY 99m Tc MDP RADIONUCLIDE BONE SCINTIGRAPHY COMPARISON: None available FINDINGS: Following the intravenous administration of 26.5 mCi of 99m Tc MDP, whole body bone images reveal: 1. Increased radiopharmaceutical concentration is defined in the midline vertex skull and left mandible. 2. The remaining skeletal structures are scintigraphically unremarkable with normal-appearing renal images and urinary bladder activity identified. NM/Bone Scan Whole Body IMPRESSION: 1. The increase in tracer uptake defined in the midline vertex calvarium in proximity to the sagittal suture is most consistent with a normal variant. Facilitated uptake defined in the left maxilla is commensurate with periostitis attributed to dental caries formation. 2. There is no definitive typical scintigraphic evidence of diffuse axial skeletal metastatic disease on the current examination. Electronically Signed: Joshua Mari DO at 21:47 EDT Tel , Service support ,
== END ==
PROVIDERS: Referring Provider Internal Medicine Medical Oncology; Visit Provider Internal Medicine Medical Oncology
DX: R29.898 Other symptoms and signs involving the musculoskeletal system (principal); R74.8 Abnormal levels of other serum enzymes; M25.551 Pain in right hip; M25.552 Pain in left hip; Z85.3 Personal history of malignant neoplasm of breast
CPT/HCPCS: 78306; A9503

== ENCOUNTER → 2020-11-14 15:33 | Outpatient (CLI) | payer OTHER, SELFPAY ==
[2018-03-10 14:02] VITALS: BMI 15.1
[2020-11-04 11:12] VITALS: BMI 18.0
--- NOTE | 2020-11-14 15:35 | MRI_ITS ---
STUDY: MR PELVIS WITH T WITHOUT CONTRAST REASON FOR EXAM: Female, 25 years old. bilat lower extremity weakness, bilat hip pain H/O BREAST CA TECHNIQUE: Standardized fat and water weighted pulse sequences were obtained in all 3 orthogonal planes, pre-and post contrast administration. IV 9ml dotarem was administered for the contrast portion of the examination. COMPARISON: None. FINDINGS: Normal urinary bladder. Normal visualized small intestine. Normal visualized colon. There is no pelvic fluid. There is no pelvic mass lesion or lymphadenopathy. Normal visualized pelvic arteries. Normal osseous structures. Normal abdominal wall. MRI/Pelvis W/WO Contrast IMPRESSION: Normal unenhanced and enhanced MRI of the pelvis. Electronically Signed: Joshua Lara MD at 18:06 EDT Tel , Service support ,
--- NOTE | 2020-11-14 15:35 | MRI_ITS ---
STUDY: MRI LUMBAR SPINE WITH AND WITHOUT CONTRAST REASON FOR EXAM: Female, 25 years old patient with acute bilateral lower extremity weakness. History of breast cancer. TECHNIQUE: Standardized fat and water weighted pulse sequences were obtained in the sagittal and axial planes. 9 ml of IV Dotarem was administered for the contrast portion of the examination. COMPARISON: Bone scan dated 11/12/2020 FINDINGS: T12-L1: Normal endplates. Normal disc height, signal and morphology. Normal bilateral facet joints. Normal central canal and bilateral lateral recesses. Normal bilateral intervertebral neural foramina. Normal lumbar lordosis. There is no substantial scoliosis. Normal conus medullaris that terminates at the L1-L2 level. L1-2: Normal endplates. Normal disc height, signal and morphology. Normal bilateral facet joints. Normal central canal and bilateral lateral recesses. Normal bilateral intervertebral neural foramina. L2-3: Normal endplates. Normal disc height, signal and morphology. Normal bilateral facet joints. Normal central canal and bilateral lateral recesses. Normal bilateral intervertebral neural foramina. L3-4: Normal endplates. Normal disc height, signal and morphology. Normal bilateral facet joints. Normal central canal and bilateral lateral recesses. Normal bilateral intervertebral neural foramina. L4-5: Normal endplates. Normal disc height, signal and morphology. Normal bilateral facet joints. Normal central canal and bilateral lateral recesses. Normal bilateral intervertebral neural foramina. L5-S1: Normal endplates. Normal disc height, signal and morphology. Normal bilateral facet joints. Normal central canal and bilateral lateral recesses. Normal bilateral intervertebral neural foramina. Normal visualized sacral ala. Normal visualized paraspinous soft tissue structures. There is no demonstrated abnormal enhancement. MRI/Spine Lumbar W/WO Contrast IMPRESSION: 1. No MR evidence to suggest metastatic disease. 2. No MR evidence for central canal stenosis or nerve impingement. Electronically Signed: Aranza Truong MD at 2:24 EDT , Service support ,
== END ==
PROVIDERS: PCP Family Medicine; Referring Provider Internal Medicine Medical Oncology; Visit Provider Internal Medicine Medical Oncology
DX: M54.5 Low back pain (principal); R29.898 Other symptoms and signs involving the musculoskeletal system; R74.8 Abnormal levels of other serum enzymes; M25.551 Pain in right hip; M25.552 Pain in left hip; Z85.3 Personal history of malignant neoplasm of breast
CPT/HCPCS: 72158; 72197; A9575

== ENCOUNTER → 2021-01-01 09:08 | Outpatient (CLI) | payer OTHER, SELFPAY ==
[2018-03-10 14:02] VITALS: BMI 15.1
[2020-11-18 13:47] VITALS: BMI 18.4
--- NOTE | 2021-01-01 09:11 | BI_ITS ---
MAMMOGRAPHY - UNILATERAL DIAGNOSTIC: LEFT BREAST REASON FOR EXAM: Female, 25 years old. Personal history of triple negative right breast PERTINENT HISTORY: Personal history of breast cancer. Prior right mastectomy. TECHNIQUE: Digital unilateral breast margarita (3D mammographic acquisition) in the CC and MLO projections. 2-D mediolateral oblique (MLO) and craniocaudad (CC) views of both breasts were obtained. CAD: Full Field Digital Mammography with Computer Added Detection was performed. COMPARISON: Comparison is made with prior study dated 12/06/2018 and 01/02/2020. FINDINGS: Breast Composition: The breasts are extremely dense, which lowers the sensitivity of mammography. There are no dominant masses or suspicious calcifications. No other significant abnormalities are identified. There has been no significant change since the prior study. BI/DIAG MAMM W/CAD, UNILAT IMPRESSION: Stable unilateral diagnostic mammogram. One year follow-up mammogram recommended. (A) ASSESSMENT CATEGORY: BIRADS Category 1: Negative. A letter regarding these results will be sent to the patient by the facility within 30 days. Approximately 10% of breast cancers are not detected by mammography. A normal mammogram should not delay biopsy of a clinically suspicious abnormality. Electronically Signed: Eliezer Laird MD at 10:04 EDT , Service support ,
== END ==
PROVIDERS: PCP Family Medicine; Referring Provider Student in an Organized Health Care Education/Training Program; Visit Provider Student in an Organized Health Care Education/Training Program
DX: Z85.3 Personal history of malignant neoplasm of breast (principal)
CPT/HCPCS: 77061; 77065; G0279

== ENCOUNTER → 2021-02-27 13:32 | Outpatient (CLI) | payer SELFPAY, OTHER ==
[2018-03-10 14:02] VITALS: BMI 15.1
--- NOTE | 2021-02-27 13:35 | CT_ITS ---
STUDY: CT CHEST WITH CONTRAST REASON FOR EXAM: Female, 25 years old. Cough, epigastric pain. Patient has a history of right breast carcinoma with mastectomy and chemotherapy with radiation. RADIATION DOSAGE (If Supplied By Facility): CTDIvol = ( 10.44 ) mGy, DLP = ( 148.80 ) mGycm TECHNIQUE: Transaxial imaging was performed following intravenous administration of IV 100mL Isovue-300. Multiplanar coronal and sagittal images were reformatted. Individualized dose optimization techniques were used for this CT. COMPARISON: Comparison is made with prior study of 01/03/2020. FINDINGS: Again, the patient is status post right mastectomy. The lungs are normal. There is no demonstrated pleural abnormality. Normal heart and pericardium. Normal mediastinum. Normal hilar regions. Normal enhanced pulmonary arteries. Normal aorta arch and descending thoracic aorta. Normal osseous structures. There is no demonstrated abnormality of the visualized upper abdomen. CT/Chest WITH Contrast IMPRESSION: Normal enhanced CT Chest examination. Electronically Signed: Eliezer Laird MD at 14:42 EDT , Service support ,
== END ==
PROVIDERS: PCP Family Medicine; Referring Provider Nurse Practitioner Family; Visit Provider Nurse Practitioner Family
DX: R10.13 Epigastric pain (principal); R05 Cough
CPT/HCPCS: 71260; Q9967

== ENCOUNTER → 2022-07-10 | Outpatient (CLI) | payer OTHER, SELFPAY ==
[2018-03-10 14:02] VITALS: BMI 15.1
--- NOTE | 2022-07-10 12:58 | US_ITS ---
STUDY: ULTRASOUND BREAST - LEFT REASON FOR EXAM: Female, 27 years old. Palpable lump left breast. TECHNIQUE: Axial and longitudinal images of the LEFT breast were performed with a high resolution ultrasound transducer. # OF IMAGES: 15 COMPARISON: Comparison is made with prior mammogram done earlier today. FINDINGS: LEFT Breast: The medial portion of the left breast was examined with ultrasound. There is dense fibroglandular tissue. No sonographic abnormality is seen. US/Breast Limited Unilateral IMPRESSION: No sonographic abnormality is seen. ASSESSMENT CATEGORY: BIRADS Category 1: Negative. A letter regarding these results will be sent to the patient by the facility within 30 days. Electronically Signed: Eliezer Laird MD at 14:03 EST ,
--- NOTE | 2022-07-10 12:58 | BI_ITS ---
MAMMOGRAPHY - UNILATERAL DIAGNOSTIC: LEFT BREAST REASON FOR EXAM: Female, 27 years old. 2 month history of left breast lump. PERTINENT HISTORY: Personal history of breast cancer. Prior right mastectomy. TECHNIQUE: Digital unilateral breast margarita (3D mammographic acquisition) in the CC and MLO projections. 2-D mediolateral oblique (MLO) and craniocaudad (CC) views of both breasts were obtained. CAD: Full Field Digital Mammography with Computer Added Detection was performed. COMPARISON: Comparison is made with prior study 01/01/2021. FINDINGS: Breast Composition: The breasts are extremely dense, which lowers the sensitivity of mammography. There are no dominant masses or suspicious calcifications. No other significant abnormalities are identified. BI/DIAG MAMM W/CAD, UNILAT IMPRESSION: Negative unilateral diagnostic mammogram. With the patient''s history of a palpable lump in the inferior medial retroareolar region of the left breast, correlation with ultrasound is recommended. ASSESSMENT CATEGORY: BIRADS Category 0: Incomplete. Need additional imaging evaluation. A letter regarding these results will be sent to the patient by the facility within 30 days. Approximately 10% of breast cancers are not detected by mammography. A normal mammogram should not delay biopsy of a clinically suspicious abnormality. Electronically Signed: Eliezer Laird MD at 14:00 EST ,
== END | disposition home or self-care (01) ==
PROVIDERS: PCP Family Medicine; Referring Provider Student in an Organized Health Care Education/Training Program; Visit Provider Student in an Organized Health Care Education/Training Program
DX: N63.20 Unspecified lump in the left breast, unspecified quadrant (principal); Z85.3 Personal history of malignant neoplasm of breast
CPT/HCPCS: 76642; 77061; 77065; G0279

== ENCOUNTER → 2023-04-27 | Outpatient (CLI) | payer SELFPAY ==
[2018-03-10 14:02] VITALS: BMI 15.1
--- NOTE | 2023-04-27 16:36 | US_ITS ---
STUDY: SUPERFICIAL ULTRASOUND - RIGHT AXILLA REASON FOR EXAM: right axillary LN/nodule, h/o right breast cancer -- US to evaluate for abnormal LN TECHNIQUE: A superficial ultrasound of the right axilla was performed with real-time and static marinelli-scale imaging. COMPARISON: None. FINDINGS: Sonographic images of the right axilla were obtained. A 3 x 1.6 x 0.6 cm possible subcutaneous soft tissue nodule is identified. A central cystic focus measuring 0.7 x 0.3 cm is suspected. The appearance is not typical for a lymph node. US/Other Unlisted US Procedure IMPRESSION: 3 x 1.6 x 0.6 cm possible heterogeneous soft tissue nodule in the right axilla of uncertain etiology. The appearance is not typical for a lymph node or abscess. Consider CT for further evaluation. Electronically Signed: Jose Miguel Mckeon MD at 22:40 EST ,
== END | disposition home or self-care (01) ==
PROVIDERS: PCP Family Medicine; Referring Provider Student in an Organized Health Care Education/Training Program; Visit Provider Student in an Organized Health Care Education/Training Program
DX: R59.0 Localized enlarged lymph nodes (principal); Z85.3 Personal history of malignant neoplasm of breast
CPT/HCPCS: 76999

== ENCOUNTER → 2023-05-07 | Outpatient (CLI) | payer OTHER, SELFPAY ==
[2018-03-10 14:02] VITALS: BMI 15.1
--- NOTE | 2023-05-07 18:59 | CT_ITS ---
EXAM: CT CHEST WITH INTRAVENOUS CONTRAST CLINICAL INDICATION: h/o breast cancer, right axilla nodule -- refer to US, recommended CT for eval TECHNIQUE: Helically acquired images were obtained of the chest with intravenous contrast. This CT exam was performed using one or more of the following dose reduction techniques: automated exposure control, adjustment of the mA and/or kV according to patient size, and/or use of iterative reconstruction technique. CONTRAST: 100 cc of Isovue-300 IV. RADIATION DOSE: CTDIvol = 17.07 mGy, DLP = 159.39 mGy-cm COMPARISON: CT scan 02/27/2001. FINDINGS: LUNGS AND PLEURAL SPACES: Unremarkable. No mass. No consolidation or edema. No pleural effusion or thickening. No pneumothorax. HEART: Unremarkable. Heart size is normal. No pericardial effusion. MEDIASTINUM: Unremarkable. No mediastinal or hilar adenopathy. Esophagus is unremarkable. No hiatal hernia. THYROID: Unremarkable. No thyroid lesions. BONES/JOINTS: Unremarkable. No suspicious lytic or blastic abnormality. SOFT TISSUES: Subcutaneous nodule measuring 1 cm right axilla. This has increased since the previous examination where it measured approximately 4 mm. Status post right mastectomy. VASCULATURE: Unremarkable. Thoracic aorta is non-dilated. No thoracic aortic dissection. No obvious central pulmonary embolism although this study was not performed with the pulmonary embolism protocol. CT/Chest WITH Contrast IMPRESSION: 1. Subcutaneous nodule measuring 1 cm in the right axilla that is increased in size since the previous examination. Differential diagnosis includes an epidermal inclusion cyst and metastasis. 2. Status post right mastectomy. Electronically Signed: Jayjay Mcfarlane MD at 20:05 [facility] ,
== END | disposition home or self-care (01) ==
PROVIDERS: PCP Family Medicine; Visit Provider Student in an Organized Health Care Education/Training Program
DX: R59.0 Localized enlarged lymph nodes (principal); Z85.3 Personal history of malignant neoplasm of breast
CPT/HCPCS: 71260; Q9967

== ENCOUNTER 2023-06-03 10:48 | Day surgery (SDC) | payer SELFPAY, OTHER ==
[2018-03-10 14:02] VITALS: BMI 15.1
[2023-06-03] VITALS (7 sets, daily range): BP systolic 91–135; BP diastolic 59–90; PULSE 54–80; RESP 14–16; TEMP 36.2–36.8; O2SAT 99–100; BMI 20.5
--- NOTE | 2023-06-03 | AXNB_PTH ---
PATIENT: MERLE BERRIOS [place] [facility] [place][id number] AGE/SX: 27/F ROOM: RE06/03/[address]: Dr. Beatrice Krause MD : 1995 BED: DIS: 06/03/2023 SPEC #: [id number] RECD: 06/03/23 13:49 STATUS: JULITA REQ #: [id number] J CARLOS: 06/03/23 00:[address]: Beatrice Krause DEPT: SURGICAL PATHOLOGY RECD BY: Shoaib Garner ENTERED: 06/03/23 13:50 SP TYPE: AX NODE BX OTHR DR: Dr. Lynne Ramos MD Tissues: Axillary lymph node, NOS Procedures: Special Stain Group II Surgery Specimen Level IV Imprint (control) HEADER OPERATION: Excision of right axillary mass PRE-OP DIAGNOSIS: Mass right axilla TISSUE SUBMITTED: Mass right axilla MICROSCOPIC DIAGNOSIS Right axilla mass, excisional biopsy: A piece of benign breast tissue with lactational changes and ductal dilatation. Negative for atypia or malignancy. See comment. SJ:rg 06/04/2023 COMMENT The specimen is evaluated at the time of touch imprints by Dr. Turner. Immediate Evaluation = Lymphocytes, macrophages and benign glandular cells are noted. Case has been reviewed in consultation with Dr. Scanlon who concurs with the above diagnosis. IDC:AM Please make reference to previous specimen ([id number]), right breast, mastectomy and sentinel lymph node with diagnosis of invasive ductal carcinoma, ductal carcinoma in situ and one lymph node positive for isolated tumor cells. This case was discussed with Dr. Krause on 06/04/2023. Case has been reviewed in consultation with Dr. Scanlon who concurs with the above diagnosis. IDC:AM MICROSCOPIC DESCRIPTION Slides are reviewed. GROSS DESCRIPTION Received fresh labeled with the patient's name is a specimen designated right axilla mass. The specimen consists of an ovoid piece of ng soft tissue measuring 1.5 x 1.5 x 1.0 cm. The specimen is bisected. Two touch imprints are prepared. A section is saved for flow cytometry study if needed. The entire specimen is submitted in two cassettes. / SJ:michela 06/03/2023 TC:5 CPT: 20092, 57216
[2023-06-03] MEDS: Lactated Ringers 1,000 ML 15 ML IV (11:30)
[2023-06-03 11:35] LABS: Internal QC Validated? YES +Cl - CLEAR BKGD; Pregnancy, Urine Negative Negative
--- NOTE | 2023-06-03 11:35 | HP.PCM_ITS ---
History and Physical Date of Admission: 06/03/23 Date of Service: 05/31/23 MR#: [id number] Acct: [id number] Name: MERLE BERRIOS Rep #: [id number] : 1995 Provider: Dr. Beatrice Krause MD Age/Sex: 27/F Location: [facility] Status: Signed Intake Vital Signs 04/22/2310:36 05/31/2312:46 Height 5 ft 3 in BP 113/82 H Blood Pressure Location Lt brachial Position Sitting Respiration 17 Pulse 87 Pulse Source Monitor Pulse Oximetry (%) 98 Oxygen Delivery Method room air Intake Visit Reasons: Biopsy Right Axillary Nodule Chief Complaint: biopsy right axillary nodule Is patient in pain?: No Allergies No Known Allergies Allergy (Verified 05/31/23 12:47) Medications calcium carbonate-vitamin D3 600 mg-125 unit tablet (Calcium) 1 ea PO DAILY 08/27/18 [History Confirmed 05/31/23] thyroid (pork) 90 mg tablet 90 mg PO DAILY 04/17/19 [History Confirmed 05/31/23] vitamin E 670 mg (1,000 unit) capsule 1,000 unit PO DAILY #30 caps 01/03/21 [Rx Confirmed 05/31/23] PFSH Medical History Abdominal pain Anorexia Bilateral hip pain Bilateral leg weakness Breast cancer Cough Elevated alkaline phosphatase level Epigastric pain Hyperthyroidism Hypokalemia Lower back pain Surgical History H/O total mastectomy of right breast Social History Smoking Status: Never smoker HPI HPI HPI: 27-year-old female presents due to right axillary mass. Patient was diagnosed with breast cancer in 2018 had a right mastectomy and sentinel lymph node biopsy with isolated tumor cells and is status post chemotherapy. Patient states she noticed a mass in her right axilla last couple months. Patient just had a baby 7 weeks ago. After reviewing delivery patient went and got it ultrasound done. Ultrasound showed at 3 x 1.6 x 0.6 possible soft tissue nodule that was not typical for lymph node in the right axilla uncertain etiology recommended CT for further evaluation. Ultrasound CT showed subcutaneous nodule measuring 1 cm stated increased in size says differential includes epidermal inclusion cysts and metastasis. Patient denies any pain or change of overlying skin to this area. ROS General General: Yes breast cancer; No weight change, appetite, fatigue, colon cancer or weakness HEENT HEENT: No difficulty swallowing, eye injury, eye surgery, swollen glands or hoarseness Endo Endocrine: Yes thyroid disease and thyroid cancer; No diabetes mellitus, Hair loss, heat intolerance or cold intolerance Skin Skin: No rash or changing moles Musc Musculoskeletal: No back problems, arthritis, rheumatoid arthritis, gout or joint pain Cardio Cardiovascular: No murmur, pacemaker, heart disease, atrial fibrillation, high blood pressure, heart attack, heart stent, palpitations, shortness of breat with exertion or chest pain Psych Psychiatric: No depression, anxiety or hearing voices Resp Respiratory: No shortness of breath, No sleep apnea, No cough, No COPD, No asthma, No emphysema and No wheezing Gastro Gastrointestinal: No abdominal pain, No nausea or vomiting, No diarrhea, No constipation, No blood in stool, No acid reflux, No hemorrhoids, No ulcers, No gallbladder problem and No black,tarry stools Adarsh Hematologic: No blood thinners, No blood disorders, No bleeding, No anemia and No blood clots Neuro Neurologic: No system reviewed and no additional complaints, except as documented, No as per HPI, No abnormal gait, No abnormal hearing, No abnormal movements, No abnormal speech, No behavioral changes, No burning sensations, No confusion, No convulsions, No disequilibrium, No dizziness, No localized weakness, No frequent falls, No headache(s), No lack of coordination, No loss of vision, No memory loss, Yes numbness, No other visual disturbances, No radicular pain, No restless legs, No sensory deficit, No syncope, Yes tingling, No tremor(s), No weakness and No other Exam Const General: cooperative, healthy appearing, comfortable and no acute distress [facility] Head: normocephalic and atraumatic Neck Neck: supple Chest Other: Right mastectomy incision well-healed, right axilla soft tissue density about 1.5 cm in size in the upper part of the axilla higher than typical lymph node dissection. Slightly firm, no change in overlying area, nontender Resp Effort & Inspection: normal respiratory effort Cardio Rate: regular rate GI Inspection: non-distended Palpation: soft Skin General: no rashes or lesions noted Neuro General: CN's II-XI intact bilaterally Extrem General: normal to inspection Psych Mental Status: mental status grossly normal Attitude: cooperative Assessment and Plan Assessment and Plan (1) Mass of right axilla: Status: Acute Plan Will plan for excisional biopsy of the right axillary mass in the OR--difficult spot to percutaneous biopsy as it is more in the upper axilla. Discussed procedure including responded to bleeding, infection, need for further surgery. Patient had no further questions this time. Beatrice Krause M.D. Pager: [phone] [facility] [address] [place] [address], [address] [place] [address] Office: [phone] Coding Level of Care Code Off vis,new,level 3 Diagnoses Mass of right axilla R22.31 06/02/23 0933 <Electronically signed by Beatrice Krause MD> Date Beatrice Krause MD
[2023-06-03] MEDS: Cefazolin 2 GM in 0.9% Normal Saline (100mL Bag) 100 ML IV (12:05)
[2023-06-03] MEDS: Bupivacaine Mpf 0.5% 30 ML VIAL (12:21)
[2023-06-03] MEDS: Lidocaine 1%/Epi 1:200 (30ml) 30 ML AMPUL (12:22)
--- NOTE | 2023-06-03 12:34 | PCM.OPRPT ---
Report of Operation Date of Procedure: 06/03/23 Pre-Operative Diagnosis: Right axillary mass Post-Operative Diagnosis: Same Surgery/Procedure Performed:: Excisional biopsy right axillary mass Surgeon: Beatrice Krause Type of Anesthesia: Local MAC Anesthesiologist: Иван Downey Special Medications: Ancef 2 g IV x 1 Specimen's removed: Right axillary mass Estimated Blood Loss (mL): < 10 cc Description of Procedure: Patient was brought into the operating room placed spinal operating table. A timeout was completed verifying correct patient, procedure, site, positioning, special equipment prior to beginning procedure. MAC anesthesia was induced. The right axilla was prepped draped in sterile fashion. Local anesthesia of 5% Marcaine and 1% lidocaine with epinephrine was used for the planned incision line overlying the mass. 15 blade scalpel was used to make incision. Mass was dissected out using electrocautery. There was some milky discharge small amount. This was sent to pathology. Incision was checked hemostasis was achieved with electrocautery. Cavity was irrigated. An incision was closed with 3-0 Vicryl subdermal sutures interrupted sutures and 4-0 Monocryl at the skin with Dermabond. Patient tolerated procedure well and states the postanesthesia care unit in stable condition. Complications none
--- NOTE | 2023-06-03 12:37 | DCINST_ITS ---
Discharge Instructions Diet Discharge Diet: No restrictions Activity Discharge Activity: May Shower May shower in (days): 1 Lifting Restrictions: 15 pounds for 1 week with the right arm Dressing / Incision Call your doctor if your incision/area has: Continuous Slow Oozing, Sudden Increased Bleeding, Increased Pain/ Swelling and Increased Redness Call your doctor if you observe: Fever of 101 or Higher Suture Line Care: Avoid Pulling/Pushing and Avoid Pinching/Bending Remove Dressing in: 1 day Additional Dressing/Incision Instructions:: Dermabond (glue) was used at the axillary incision this may start to peel off in about 5 days. Follow Up Care Please Follow Up With: Beatrice Krause MD When: Please call [phone] for an appointment to be seen in 2 week. Test Results: Test results from this visit will be discussed in further detail at your follow- up appointment, if applicable. Discharge Plan Admission Attending Provider: Beatrice Krause Primary Care Provider: Lynne Ramos Discharge Orders/Prescriptions Prescriptions: Continued thyroid (pork) 90 MG tablet 90 mg PO DAILY Calcium 600 + D(3) 1 EACH tablet 1 ea PO DAILY Referrals / Follow Up: Lynne Ramos MD [Primary Care Provider] - Disposition Disposition (needs filled in before D/C Order can be placed): Home, Self Care
== END 2023-06-03 14:21 | disposition home or self-care (01) ==
LOC: SDC 10:52 → AC 10:53
PROVIDERS: Anesthesiology; PCP Family Medicine; Referring Provider Family Medicine; Visit Provider Surgery
PROC: (CPT 38500; principal; 2023-06-03 12:10)
DX: R22.31 Localized swelling, mass and lump, right upper limb (principal); E05.90 Thyrotoxicosis, unspecified without thyrotoxic crisis or storm; Z79.899 Other long term (current) drug therapy
CPT/HCPCS: 24075; 01710; 81025; 88305; 88313; J7120; J2405